=== PATIENT | female | born 1960 | race Caucasian/White ===

== ENCOUNTER 2020-08-10 01:35 | Emergency (ER) | payer OTHER ==
[~2020-08-10] VITALS: Ht 165.1 cm; Wt 74.8 kg
[2020-08-10 01:41] VITALS: BP_SYST 135
[2020-08-10 02:48] VITALS: BP_SYST 135
== END 2020-08-10 02:48 | disposition home or self-care (01) ==
LOC: SED 01:35
DX: Z02.89 Encounter for other administrative examinations (principal); Z88.0 Allergy status to penicillin; V43.52XA Car driver injured in collision with other type car in traffic accident, initial encounter; Y93.89 Activity, other specified; Y92.89 Other specified places as the place of occurrence of the external cause; Y99.8 Other external cause status
CPT/HCPCS: 99283